=== PATIENT | male | born 1965 | race Two or more races ===

== ENCOUNTER 2024-08-25 09:42 | Emergency (ER) | payer OTHER ==
[~2024-08-25] VITALS: Ht 165.1 cm; Wt 72.0 kg
[2024-08-25 09:43] VITALS: TEMP 98
[2024-08-25] MEDS: BACITRACIN 0.9 GM PACKET OINTMENT TP ONE (10:17)
[2024-08-25] MEDS: LIDOCAINE 1% 10 ML VIAL SQ ONE (10:17)
[2024-08-25] MEDS ORDERED: ACET-66 PO (11:09)
[2024-08-25] MEDS ORDERED: BACI28.410 TP (11:09)
[2024-08-25 11:15] VITALS: BP 166/80; PULSE 90; RESP 16; O2SAT 98
== END 2024-08-25 11:40 | disposition home or self-care (01) ==
LOC: EMS 09:44
DX: S01.81XA Laceration without foreign body of other part of head, initial encounter (principal); E11.9 Type 2 diabetes mellitus without complications; W22.09XA Striking against other stationary object, initial encounter; Y93.89 Activity, other specified; Y92.89 Other specified places as the place of occurrence of the external cause; Y99.0 Civilian activity done for income or pay
CPT/HCPCS: 99282; 82962; 12011; J3490

== ENCOUNTER 2024-09-01 11:11 | Emergency (ER) | payer OTHER ==
[~2024-09-01] VITALS: Ht 167.6 cm; Wt 72.7 kg
[~2024-09-01 11:11] MED LIST: ACET-66 PO; BACI28.410 TP
[2024-09-01 11:19] VITALS: TEMP 97.6
[2024-09-01 12:39] VITALS: BP 132/69; PULSE 78; RESP 16; O2SAT 98
== END 2024-09-01 12:42 | disposition home or self-care (01) ==
LOC: EMS 11:11
DX: S01.81XD Laceration without foreign body of other part of head, subsequent encounter (principal); Z48.02 Encounter for removal of sutures; E11.9 Type 2 diabetes mellitus without complications; X58.XXXD Exposure to other specified factors, subsequent encounter
CPT/HCPCS: 99281; Z7502